=== PATIENT | female | born 1960 | race Caucasian/White ===

== ENCOUNTER 2019-01-14 02:42 | Emergency (ER) | payer OTHER ==
[~2019-01-14] VITALS: Ht 160 cm; Wt 66.2 kg
[2019-01-14] MEDS ORDERED: VALIUM5 MG PO (02:51)
[2019-01-14] MEDS ORDERED: LIPITOR 20 MG T20 M1 PO (02:51)
[2019-01-14] MEDS ORDERED: NORCO 5-325 TA1 EACH PO (02:51)
[2019-01-14] MEDS ORDERED: MILK OF MA400 MG/5 M PO (02:52)
[2019-01-14] MEDS ORDERED: KEFLEX250 MG PO (02:52)
[2019-01-14] MEDS ORDERED: METAMUCIL0.4 GM PO (02:52)
[2019-01-14 03:33] LABS: ABSOLUTE NEUTROPHILS 6.3 thou/uL (1.4-8.2); BASOPHILS 0.5 % (0.0-2.0); EOSINOPHILS 3.5 % (0.0-3.0); HEMATOCRIT 38.9 % (37.0-47.0); HEMOGLOBIN 12.9 gm/dL (12.0-15.0); LYMPHOCYTES 17.5 % (24.0-44.0); MCH 29.3 pg (26.0-34.0); MCHC 33.1 g/dL (28.0-37.0); MCV 88.4 fL (80.0-100.0); MONOCYTES 6.8 % (1.0-8.0); PLATELET COUNT 352 thou/uL (150-400); POLYS 71.7 % (36.0-66.0); RDW 13.6 % (10.5-14.5); WBC 8.8 thou/uL (4.0-11.0)
[2019-01-14 03:40] LABS: ANION GAP 9 mmol/L (7-16); BUN 9 mg/dL (7-18); CALCIUM 9.3 mg/dL (8.5-10.1); CHLORIDE 100 mmol/L (98-107); CO2 30 mmol/L (21-32); CREATININE 0.8 mg/dL (0.6-1.0); GLUCOSE 141 mg/dL (74-106); POTASSIUM 3.5 mmol/L (3.5-5.1); SODIUM 139 mmol/L (136-145)
[2019-01-14 03:49] LABS: ALBUMIN 3.4 g/dL (3.4-5.0); LIPASE 57 U/L (73-393); SGOT 92 U/L (15-37); SGPT 153 U/L (30-65); TOTAL BILIRUBIN 0.5 mg/dL (<0.1-1.0); TOTAL PROTEIN 7.4 g/dL (6.4-8.2); TROPONIN-I <0.06 ng/mL (<0.06)
[2019-01-14 07:17] VITALS: BP 108/40
--- NOTE | 2019-01-14 08:14 | EKG ---
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 RAY : 1960 Requested By: Scotty Lofton Order Number: [id number] MD: Thomas Emerson Measurements Intervals [place] Rate: 75 P: 34 PA: 135 QRS: 65 QRSD: 77 T: 3 QT: 395 QTc: 442 Interpretive Statements Sinus rhythm No significant abnormality No previous ECG available for comparison Electronically Signed On 01-14-2019 8:14:01 HEAD OF STOCK by Thomas Emerson [email or web address] ��������������������������������������������� <ELECTRONICALLY SIGNED> ���������������������������������������� By: Thomas Emerson MD, [facility] ��������������������������������������������� 01/14/19 0814 0628 7 Thomas Emerson MD, FACC /EPI
== END 2019-01-14 07:18 | disposition home or self-care (01) ==
LOC: ER 02:42
PROVIDERS: Emergency Medicine
DX: G89.18 Other acute postprocedural pain (principal); R10.32 Left lower quadrant pain; K59.00 Constipation, unspecified; E78.00 Pure hypercholesterolemia, unspecified; Z98.86 Personal history of breast implant removal; Z98.890 Other specified postprocedural states

== ENCOUNTER → 2020-01-05 | Outpatient (CLI) | payer OTHER ==
[~2020-01-05] MED LIST: KEFLEX250 MG PO; LIPITOR 20 MG T20 M1 PO; METAMUCIL0.4 GM PO; MILK OF MA400 MG/5 M PO; NORCO 5-325 TA1 EACH PO; VALIUM5 MG PO
== END ==
LOC: RAD 14:45
DX: Z12.31 Encounter for screening mammogram for malignant neoplasm of breast (principal)

== ENCOUNTER → 2021-08-05 | Outpatient (CLI) | payer OTHER | LOC: RAD 09:08 | PROVIDERS: ATTEND Obstetrics & Gynecology | DX: Z12.31 Encounter for screening mammogram for malignant neoplasm of breast (principal) ==